=== PATIENT | female | born 1985 | race Caucasian/White ===

== ENCOUNTER 2020-02-18 11:15 | Emergency (ER) | payer OTHER, SELFPAY ==
--- NOTE | ~2020-02-18 | XR_ITS ---
EXAMINATION: XR chest 2V DATE: 02/18/2020 11:47 INDICATION: Cough. Shortness of breath. TECHNIQUE: Frontal and lateral views of the chest were obtained. COMPARISON: None. FINDINGS: The chest demonstrates clear lungs without pneumonia, pleural effusion, or pneumothorax. Th e heart size is normal. IMPRESSION: 1. No acute cardiopulmonary disease. Reviewed, dictated and finalized at location A.
[2020-02-18 11:20] VITALS: BP 128/78; PULSE 71; RESP 22; TEMP 36.8; O2SAT 99
--- NOTE | 2020-02-18 11:35 | ED.URI ---
HPI - URI/Sore Throat General Chief Complaint: Upper Respiratory Infection Stated Complaint: ear throat and sinus asthma Time Seen by Provider: 02/18/20 11:29 Source: patient and RN notes reviewed Mode of arrival: ambulatory Limitations: no limitations History of Present Illness HPI Narrative: Patient presents today with a one-week history of dry cough, postnasal drip, sore throat, nasal congestion, increased shortness of breath and wheezing. Patient does have history of asthma and states she has similar symptoms every year when the weather changes. Denies fever or rhinorrhea. She has been using Tylenol Sinus and albuterol with mild relief. Patient continues to smoke 1 pack/day. MD elicited complaint: cough Related Data Home Medications Medication Instructions Recorded Confirmed albuterol sulfate 1.25 mg INHALATION Q4H PRN 08/20/19 02/18/20 albuterol sulfate 2 puff INHALATION QID PRN 08/20/19 02/18/20 Allergies Allergy/AdvReac Type Severity Reaction Status Date / Time amoxicillin Allergy Unknown Rash Verified 02/18/20 11:33 cephalexin Allergy Unknown Rash Verified 02/18/20 11:33 latex Allergy Unknown Rash Verified 02/18/20 11:33 Sulfa (Sulfonamide Allergy Unknown Rash Verified 02/18/20 11:33 Antibiotics) TAPE AdvReac Intermediate Rash Uncoded 07/19/19 15:42 Review of Systems Review of Systems: Narrative: CONSTITUTIONAL: Denies body aches, fever, chills, or sweats. EYES: Denies visual changes, redness, or discharge. ENT: Denies rhinorrhea, or otalgia.+ Congestion, postnasal drip, sore throat CARDIOVASCULAR: Denies chest pain, palpitations, or edema. RESPIRATORY: + Cough, shortness of breath, wheezing GASTROINTESTINAL: Denies abdominal pain, nausea, vomiting, or diarrhea. GENITOURINARY: Denies dysuria or hematuria. SKIN: Denies rash, itching, or wounds. MUSCULOSKELETAL: Denies back pain, joint pain, or myalgia. NEUROLOGIC: Denies headache, numbness, tingling, or weakness. PSYCH: Denies depression or anxiety. [facility] Past Medical History Medical History Asthma Cigarette smoker Social History Social History (Updated 08/20/19 @ 09:02 by Roxana Eng, [facility], ) Smoking packs per day: 1 Smoking cigarettes per day: 20.0 Years smoked: 16 Smoking pack-years: 16.00 Comments At time of signature, I have reviewed and agree with nursing past medical, surgical, social and family history unless otherwise noted. Please see nursing chart for further information. There is no relevant family history pertinent to the presenting complaint Exam Narrative: Exam Narrative: GENERAL: Well-appearing, well-nourished, and in no acute distress. HEAD: Normocephalic, atraumatic. EYES: EOMI. No redness or drainage. Conjunctivae normal. ENT: Mucous membranes pink and moist. Nares mildly congested. No rhinorrhea. TMs normal bilaterally. Throat normal. Uvula midline. NECK: Normal AROM. Supple. No lymphadenopathy. CHEST: No respiratory distress. Diminished in the right base, otherwise clear, but tight. HEART: Regular rate and rhythm. No murmur appreciated. Normal peripheral pulses. EXTREMITIES: Normal range of motion. No edema. SKIN: Warm, dry, no rash. Capillary refill normal. Normal skin turgor. NEURO: No focal deficits. Alert and oriented x3. Gait steady. PSYCH: Normal affect. No signs of depression or anxiety. Course Vital Signs Vital signs: Vital Signs Temperature 98.2 F 02/18/20 11:20 Pulse Rate 71 02/18/20 11:20 Respiratory Rate 22 H 02/18/20 11:20 Blood Pressure 128/78 02/18/20 11:20 Pulse Oximetry 99 02/18/20 11:20 Temperature 98.2 F 02/18/20 11:20 Pulse Rate 71 02/18/20 11:20 Respiratory Rate 22 H 02/18/20 11:20 Blood Pressure 128/78 02/18/20 11:20 Pulse Oximetry 99 02/18/20 11:20 Reviewed. Pt has been instructed to follow up with her PCP regarding her elevated blood pressure today. MDM - URI/Sore Throat Differential Diagnosis Differential diagnosis: Lik
== END 2020-02-18 12:20 | disposition home or self-care (01) ==
PROVIDERS: Emergency Provider Nurse Practitioner
DX: J06.9 Acute upper respiratory infection, unspecified (principal); J45.901 Unspecified asthma with (acute) exacerbation; F17.210 Nicotine dependence, cigarettes, uncomplicated
CPT/HCPCS: 71046; 99213; G0463

== ENCOUNTER 2020-02-23 11:19 | Emergency (ER) | payer OTHER, SELFPAY ==
--- NOTE | ~2020-02-23 | XR_ITS ---
XR chest 2V DATE: 02/23/2020 12:10 INDICATION: Shortness of breath TECHNIQUE: 2 views COMPARISON: 02/18/2020 2 view chest FINDINGS: Normal heart size. No hilar or mediastinal enlargement. The lungs are normally inflated and clear of infiltrate or consolidation. No pleural effusion or pulmonary vascular congestion or pneumo thorax. Included skeletal structures are unremarkable. IMPRESSION: Negative chest Reviewed, dictated and finalized at location A. IMPRESSION: Negative chest
[2020-02-23 11:34] VITALS: BP 110/82; PULSE 80; RESP 20; TEMP 36.8; O2SAT 98
[2020-02-23] MEDS: methylPREDNISolone ACETATE 40 MG/ML VIAL 80 MG IM (11:43)
[2020-02-23 11:50] VITALS: PULSE 78; RESP 16
[2020-02-23] MEDS: IPRATROPIUM 0.5 MG/ALBUTEROL SULFATE 2.5 MG AMPUL.NEB 3 ML INHALATION (11:56)
[2020-02-23 12:05] VITALS: PULSE 78; RESP 18
--- NOTE | 2020-02-23 12:32 | ED.SOB ---
HPI - SOB/Dyspnea General Chief Complaint: Shortness of Breath/Dyspnea Stated Complaint: Asthma/difficulty breathing Source: patient Mode of arrival: ambulatory Limitations: no limitations History of Present Illness HPI Narrative: This is a 34-year-old female presents with increasing shortness of breath, has a history of asthma currently on albuterol and recently finished a tapering dose of Medrol Dosepak. Has been pretty well controlled with her albuterol, but with the recent weather change has increased occurrences and exacerbations of her asthma. Approximately 1 week ago was seen at [facility] and was treated for her asthma and viral respiratory infection with a tapering dose of steroids. Currently there is no fever chills cough is nonproductive, with no nausea vomiting no abdominal pain no chest pain. MD elicited complaint: shortness of breath and cough Pertinent past history: asthma Onset (ago): week(s) Context: allergen exposure Timing: intermittent Severity: moderate Exacerbating factors: coughing, allergies, humidity and strong odors Relieving factors: nothing Known history of: asthma Associated symptoms: cough and wheezing Related Data Home Medications Medication Instructions Recorded Confirmed albuterol sulfate 1.25 mg INHALATION Q4H PRN 08/20/19 02/23/20 albuterol sulfate 2 puff INHALATION QID PRN 08/20/19 02/23/20 Allergies Allergy/AdvReac Type Severity Reaction Status Date / Time amoxicillin Allergy Unknown Rash Verified 02/18/20 11:33 cephalexin Allergy Unknown Rash Verified 02/18/20 11:33 latex Allergy Unknown Rash Verified 02/18/20 11:33 Sulfa (Sulfonamide Allergy Unknown Rash Verified 02/18/20 11:33 Antibiotics) TAPE AdvReac Intermediate Rash Uncoded 07/19/19 15:42 Review of Systems Review of Systems: All systems reviewed & are unremarkable except as noted in HPI and below PMFSH Past Medical History Medical History Asthma Cigarette smoker Social History Social History Smoking packs per day: 1 Smoking cigarettes per day: 20.0 Years smoked: 16 Smoking pack-years: 16.00 Exam Const: General: no acute distress and alert Orientation/consciousness: patient oriented x3 HENMT: Head: normal to inspection Eyes: Conjunctivae: conjunctivae normal Pupils: Equal, round and reactive pupils present Neck: Neck: normal visual inspection and no lymphadenopathy Chest: Chest palpation & inspection: normal inspection of the chest Resp: Auscultation: wheezes and diminished lung sounds Cardio: Rate: regular rate Rhythm: regular rhythm GI: GI Palp: Yes Soft to palpation Auscultation: normal bowel sounds : General: Yes no CVA tenderness Back/Spine/Pelvis: Back: no CVA tenderness Skin: General skin exam: normal color Rashes: no rashes Neuro: General: patient oriented x3, moves all extremities and no meningeal signs Extrem: General: normal to inspection Psych: Mental Status: mental status grossly normal Course Vital Signs Vital signs: Vital Signs Temperature 36.8 C 02/23/20 11:34 Pulse Rate 80 02/23/20 11:34 Respiratory Rate 20 02/23/20 11:34 Blood Pressure 110/82 02/23/20 11:34 Pulse Oximetry 98 02/23/20 11:34 Temperature 36.8 C 02/23/20 11:34 Pulse Rate 78 02/23/20 12:05 Respiratory Rate 18 02/23/20 12:05 Blood Pressure 110/82 02/23/20 11:34 Pulse Oximetry 98 02/23/20 11:34 Critical Care Time Critical Care Time Critical Care Time: No Discharge Plan Discharge Prescriptions: No Action prednisone 50 mg tablet 50 mg PO DAILY 5 Days Qty: 5 RF: 0 albuterol sulfate 90 mcg/actuation Hfa Aerosol Inhaler 2 puff INHALATION QID PRN (Reason: Shortness Of Breath Or Wheezing) RF: 0 albuterol sulfate 1.25 mg/3 mL Solution For Nebulization 1.25 mg INHALATION Q4H PRN (Reason: Shortness Of Breath Or Wheezing) RF: 0 Follow-up/Referrals: UNKNOWN
[2020-02-23 12:40] VITALS: PULSE 75; RESP 18; O2SAT 95
== END 2020-02-23 12:50 | disposition home or self-care (01) ==
PROVIDERS: Emergency Provider Emergency Medicine
DX: J45.909 Unspecified asthma, uncomplicated (principal); J06.9 Acute upper respiratory infection, unspecified; F17.200 Nicotine dependence, unspecified, uncomplicated
CPT/HCPCS: 71046; 94640; 96372; 99282; 99283; J1030

== ENCOUNTER 2020-06-01 02:34 | Emergency (ER) | payer OTHER, SELFPAY ==
--- NOTE | ~2020-06-01 | XR_ITS ---
EXAMINATION: XR chest 1V portable EXAM DATE: 06/01/2020 03:08 INDICATION: TECHNIQUE: Portable AP frontal chest x-ray was obtained. Comparison is made to prior examination from 02/23/2020. FINDINGS: The lungs are clear. There are no pleural effusions. The cardiomediastinal silhouette is within normal limits. There is no pneumothorax suspected. The bones and soft tissues are unremarkab le. There is no significant interval change. IMPRESSION: Unremarkable chest x-ray exam. Reviewed, dictated and finalized at location A.
[2020-06-01 02:34] VITALS: BP 133/74; PULSE 103; RESP 24; TEMP 36.1; O2SAT 96
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
[2020-06-01] MEDS: IPRATROPIUM 0.5 MG/ALBUTEROL SULFATE 2.5 MG AMPUL.NEB 3 ML INHALATION (02:58)
[2020-06-01] MEDS: methylPREDNISolone SOD SUCC 125 MG VIAL (02:59)
[2020-06-01 03:00] VITALS: PULSE 103; RESP 24
--- NOTE | 2020-06-01 03:04 | PC.NURSE ---
pt able to talk clearly while talking on the phone
--- NOTE | 2020-06-01 03:06 | PC.NURSE ---
pt argumentative when asked if feeling better after breathing treatment. pt denies being able to talk in clear sentence while on the phone. erp and nurse heard pt talking clearly on the phone.
[2020-06-01 03:13] LABS: Basophils Absolute Auto 0.04 K/mm3 (0.00-0.10); Basophils Percent Auto 0.4 % (0.0-1.0); Eosinophils Absolute Auto 0.31 K/mm3 (0.02-0.50); Eosinophils Percent Auto 3.5 % (1.0-6.0); Hematocrit 43.1 % (35.0-49.0); Hemoglobin 14.6 g/dL (12.0-15.0); Immature Granulocyte Absolute 0.03 K/mm3 (0.00-0.00); Immature Granulocyte Percent A 0.3 % (0.0-0.0); Lymphocytes Absolute Auto 3.85 K/mm3 (1.10-4.50); Mean Corpuscular HGB Conc 33.9 g/dL (32.0-36.0); Mean Corpuscular Hemoglobin 30.4 pg (27.0-31.0); Mean Corpuscular Volume 89.6 fL (78.0-102.0); Mean Platelet Volume 9.9 fl (9.2-11.8); Monocytes Absolute Auto 0.89 K/mm3 (0.10-0.90); Monocytes Percent Auto 9.9 % (2.0-11.0); Neutrophils Absolute Auto 3.8 K/mm3 (1.7-7.2); Neutrophils Percent Auto 42.9 % (50.0-70.0); Platelet Count Result 329 K/mm3 (150-420); Red Blood Count 4.81 M/mm3 (4.20-5.40)
[2020-06-01 03:14] VITALS: PULSE 105; RESP 22
[2020-06-01 03:27] LABS: Alanine Aminotransferase 29 U/L (14-59); Albumin Level 3.8 g/dL (3.4-5.0); Alkaline Phosphatase 110 U/L (46-116); Anion Gap 16 mmol/L (8-16); Aspartate Amino Transferase 18 U/L (15-37); Bilirubin,Total 0.2 mg/dL (0.00-1.00); Blood Urea Nitrogen 11 mg/dL (7-18); Calcium 9.1 mg/dL (8.5-10.1); Carbon Dioxide 20 mmol/L (21-32); Chloride 109 mmol/L (98-108); Estimated CRCL calculation 60 ml/min; Estimated Glomerular Filt Rate 49; Ethanol 183 mg/dL (0-6); Glucose 116 mg/dL (70-99); Osmolality Calculated 300 mOsm/kg (285-295); Potassium 3.4 mmol/L (3.5-5.1); Sodium 145 mmol/L (136-145); Total Protein 7.2 g/dL (6.4-8.2)
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
[2020-06-01 03:50] VITALS: BP 119/66; PULSE 103; RESP 20; TEMP 37.1; O2SAT 96
[2020-06-01 04:05] VITALS: BP 121/65; PULSE 102; RESP 20; O2SAT 96
--- NOTE | 2020-06-01 04:06 | PC.NURSE ---
pt departed ambulatory from facility. no respiratory distress noted.
== END 2020-06-01 04:13 | disposition home or self-care (01) ==
PROVIDERS: Emergency Provider Emergency Medicine; PCP Family Medicine
DX: J45.901 Unspecified asthma with (acute) exacerbation (principal); F10.129 Alcohol abuse with intoxication, unspecified; F17.200 Nicotine dependence, unspecified, uncomplicated
CPT/HCPCS: 36415; 71045; 80053; 80307; 85025; 94640; 96365; 96375; 99283; 99284; J2930; J7030

== ENCOUNTER 2020-07-11 16:11 | Emergency (ER) | payer OTHER, SELFPAY ==
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
[2020-07-11 16:37] VITALS: BP 131/83; PULSE 76; RESP 20; TEMP 36.6; O2SAT 97
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
== END 2020-07-11 17:12 | disposition home or self-care (01) ==
PROVIDERS: Emergency Provider Emergency Medicine; PCP Family Medicine
DX: M25.512 Pain in left shoulder (principal); V89.2XXA Person injured in unspecified motor-vehicle accident, traffic, initial encounter
CPT/HCPCS: 73000; 99282; 99283

== ENCOUNTER 2020-08-02 08:04 | Emergency (ER) | payer OTHER, SELFPAY ==
--- NOTE | ~2020-08-02 | CT_ITS ---
EXAMINATION: CT abdomen pelvis w con DATE: 08/02/2020 10:09 INDICATION: Mid upper abdominal pain, nausea and vomiting. TECHNIQUE: Computed tomography (CT) of the abdomen and pelvis was performed without intravenous contr ast. Automated exposure control and iterative reconstruction technique were employed. The dose-length product was 848.51 mGy-cm. COMPARISON: None FINDINGS: Lung bases are clear. Heart size is normal. No pericardial or pleural effusion. Liver, gallbladder, s pleen, pancreas, bilateral adrenal glands and kidneys are normal. Bowels including the appendix are n ormal. Bladder is normal. There is asymmetric thickening of the posterior wall of the uterus relative to the anterior wall with anterior bowing of the endometrial complex and reported negative test suggesting the presence of an otherwise occult uterine fibroid. Metallic likely tubal ligation clip situated between the uterus and the right ovary. Left adnexa is unremarkable with no left-sided tubal ligation clip. No free intraperitoneal gas or fluid. No pathologically enlarged abdominal or pe lvic lymphadenopathy. Bones are unremarkable. IMPRESSION: 1. No acute intra-abdominal/pelvic process. 2. Thickening of the posterior uterine wall with mass effect on the endometrial complex suggesting po ssible uterine fibroid. 3. Unilateral right-sided tubal ligation clip in expected position. No left-sided tubal ligation clip lower left ovary is visualized. Reviewed, dictated and finalized at location B. IMPRESSION: 1. No acute intra-abdominal/pelvic process. 2. Thickening of the posterior uterine wall with mass effect on the endometrial complex suggesting possible uterine fibroid. 3. Unilateral right-sided tubal ligation clip in expected position. No left-elvis ed tubal ligation clip lower left ovary is visualized.
--- NOTE | ~2020-08-02 | XR_ITS ---
EXAMINATION: XR chest 2V DATE: 08/02/2020 09:55 INDICATION: Cough and congestion TECHNIQUE: PA and lateral views of the chest were obtained. COMPARISON: Chest radiograph dated 06/01/2020 FINDINGS: The lungs remain clear with no focal airspace opacities, pulmonary edema, pleural effusion or pneumot horax. The cardiomediastinal silhouette is normal. There is some excreted contrast in the renal colle cting systems on the lateral projection related to the immediately prior contrast enhanced CT of the abdomen and pelvis. Visualized bones and soft tissues are unremarkable. IMPRESSION: 1. Normal chest radiograph. Reviewed, dictated and finalized at location B. IMPRESSION: 1. Normal chest radiograph.
[2020-08-02 08:25] VITALS: BP 139/79; PULSE 76; RESP 20; TEMP 36.8; O2SAT 96
--- NOTE | 2020-08-02 08:47 | ECG_ITS ---
Measurements Intervals Maple Rate: 65 P: 65 OK: 140 QRS: 80 QRSD: 86 T: 54 QT: 370 QTc: 387 Interpretive Statements SINUS RHYTHM WITH SINUS ARRHYTHMIA LOW QRS VOLTAGE IN PRECORDIAL LEADS DELAYED PRECORDIAL R/S TRANSITION BASELINE ARTIFACT- I, III, AVR, AVL, AVF BORDERLINE ECG Electronically Signed On 08-02-2020 9:17:21 CDT by Mukesh Marie D.O.
[2020-08-02] MEDS: ONDANSETRON INJ 4 MG/2 ML VIAL IV PUSH (09:11)
[2020-08-02] MEDS: SODIUM CHLORIDE 0.9% IV 1,000 ML 999 ML IV CONT (09:13)
[2020-08-02 09:14] LABS: Basophils Absolute Auto 0.04 K/mm3 (0.00-0.10); Basophils Percent Auto 0.3 % (0.0-1.0); Eosinophils Absolute Auto 0.32 K/mm3 (0.02-0.50); Eosinophils Percent Auto 2.4 % (1.0-6.0); Hematocrit 42.9 % (35.0-49.0); Hemoglobin 14.4 g/dL (12.0-15.0); Immature Granulocyte Absolute 0.05 K/mm3 (0.00-0.00); Immature Granulocyte Percent A 0.4 % (0.0-0.0); Lymphocytes Absolute Auto 1.29 K/mm3 (1.10-4.50); Lymphocytes Percent Auto 9.8 % (18.0-42.0); Mean Corpuscular HGB Conc 33.6 g/dL (32.0-36.0); Mean Corpuscular Hemoglobin 30.1 pg (27.0-31.0); Mean Corpuscular Volume 89.7 fL (78.0-102.0); Mean Platelet Volume 9.6 fl (9.2-11.8); Monocytes Absolute Auto 1.18 K/mm3 (0.10-0.90); Monocytes Percent Auto 8.9 % (2.0-11.0); Neutrophils Absolute Auto 10.4 K/mm3 (1.7-7.2); Neutrophils Percent Auto 78.2 % (50.0-70.0); Platelet Count Result 334 K/mm3 (150-420); Red Blood Count 4.78 M/mm3 (4.20-5.40); Red Cell Distribution Width 12.3 % (11.6-14.4); White Blood Count 13.2 K/mm3 (4.8-10.8)
[2020-08-02] MEDS: KETOROLAC 30 MG/ML VIAL (*BKC) IV PUSH (09:20)
[2020-08-02 09:28] LABS: Add Urine Microscopic? YES; Appearance Urine Sl Cloudy (Clear); Bilirubin Urine Negative (Negative); Blood Urine Negative (Negative); Color Urine Amber (Yellow); Glucose Urine UA Negative (Negative); Ketones Urine Negative (Negative); Leukocyte Esterase Ur Negative (Negative); Nitrate Urine Negative (Negative); Protein Urine Negative (Negative); Specific Grav Ur >= 1.030 (1.010-1.020); Urobilinogen Urine 0.2 mg/dL (0.2-1.0)
[2020-08-02 09:30] LABS: Pregnancy On Board Control Positive; Urine Pregnancy Test Negative
[2020-08-02 09:31] LABS: Alanine Aminotransferase 43 U/L (14-59); Albumin Level 3.5 g/dL (3.4-5.0); Alkaline Phosphatase 108 U/L (46-116); Anion Gap 9 mmol/L (8-16); Aspartate Amino Transferase 27 U/L (15-37); Bilirubin,Total 0.6 mg/dL (0.00-1.00); Blood Urea Nitrogen 11 mg/dL (7-18); Calcium 8.5 mg/dL (8.5-10.1); Carbon Dioxide 26 mmol/L (21-32); Chloride 106 mmol/L (98-108); Estimated CRCL calculation 73 ml/min; Estimated Glomerular Filt Rate > 60; Glucose 98 mg/dL (70-99); Influenza Control Valid (Valid); Lipase 64 U/L (73-393); Osmolality Calculated 291 mOsm/kg (285-295); Potassium 4.1 mmol/L (3.5-5.1); Sodium 141 mmol/L (136-145); Total Protein 6.7 g/dL (6.4-8.2); Troponin I < 0.02 ng/mL (0.00-0.056)
[2020-08-02 09:33] LABS: Lactic Acid Reflex 0.9 mmol/L (0.4-2.0)
[2020-08-02 09:34] LABS: Bacteria Urine Trace /hpf; Mucus Urine Moderate /lpf; RBC Urine None seen /hpf (0-2); Squamous Epithelial Cell Urine Few /hpf (Few); WBC Urine None seen /hpf (0-3)
--- NOTE | 2020-08-02 10:26 | ED.ABDPAIN ---
HPI - Abdominal Pain General Chief Complaint: Abdominal Pain Stated Complaint: COUGH VOMITTING SORE THROAT Source: patient Mode of arrival: ambulatory Limitations: no limitations History of Present Illness HPI narrative: This is a 35-year-old female presents with lower abdominal pain off and on for the last couple of days with some nausea with no diarrhea or constipation no radiation of her pain no flank discomfort no dysuria no having menstrual periods. Patient has some cough nonproductive with chills no fevers sinus congestion currently no drainage with no headache no blurry vision no shortness of breath. MD elicited complaint: abdominal pain Pertinent past history: none Onset (ago): day(s) Pain Consistency: intermittent Location: periumbilical and suprapubic Severity: moderate Pain scale (0-10): 5 Quality: aching Radiation: none Related Data Home Medications Medication Instructions Recorded Confirmed albuterol sulfate 1.25 mg INHALATION Q4H PRN 08/20/19 08/02/20 beclomethasone dipropionate [Qvar 1 inh INHALATION DAILY 07/11/20 08/02/20 RediHaler] Allergies Allergy/AdvReac Type Severity Reaction Status Date / Time amoxicillin Allergy Unknown Hives Verified 07/11/20 16:47 cephalexin Allergy Unknown Diarrhea Verified 07/11/20 16:47 latex Allergy Unknown Rash Verified 07/11/20 16:47 Sulfa (Sulfonamide Allergy Unknown Rash Verified 07/11/20 16:47 Antibiotics) TAPE AdvReac Intermediate Itching Uncoded 07/11/20 16:47 Review of Systems Review of Systems: All systems reviewed & are unremarkable except as noted in HPI and below PMFSH Past Medical History Medical History (Updated 08/02/20 @ 10:30 by Pedro Luis Yan MD) Asthma Cigarette smoker Nicotine addiction Overweight (BMI 25.0-29.9) Seasonal allergies Surgical History Surgical History H/O tubal ligation Social History Social History Smoking packs per day: 1 Smoking cigarettes per day: 20.0 Years smoked: 16 Smoking pack-years: 16.00 Smoking status: Current every day smoker Alcohol intake: never Substance use: never Substance use type: does not use Gender identity (if verbalized by the patient): Female Exam Const: General: no acute distress and alert Orientation/consciousness: patient oriented x3 Limitations: altered mental status HENMT: Head: normal to inspection Eyes: Conjunctivae: conjunctivae normal Pupils: Equal, round and reactive pupils present EOM: EOMs intact bilaterally Direct Ophthalmoscopy: no photophobia Neck: Neck: normal visual inspection, no lymphadenopathy and no meningeal signs Chest: Chest palpation & inspection: normal inspection of the chest and abnormal inspection of the chest Resp: Effort & Inspection: normal respiratory effort Auscultation: clear to auscultation bilaterally Cardio: Rate: regular rate Rhythm: regular rhythm GI: GI Palp: Yes Soft to palpation : General: Yes no CVA tenderness Urinary Catheter: Urinary Catheter: patent and draining Skin: General skin exam: normal color Rashes: no rashes Neuro: General: patient oriented x3, moves all extremities, no meningeal signs and no focal motor deficits Extrem: General: normal to inspection and no pedal edema Psych: Appearance: grossly normal Mental Status: mental status grossly normal Affect: normal affect Course Course Emergency Course: reassessment of patient's pain level has improved slightly, with some improvement of her nausea, discussed her lab findings and CT findings and recommended she follow-up with primary care physician. Vital Signs Vital signs: Vital Signs Temperature 36.8 C 08/02/20 08:25 Pulse Rate 76 08/02/20 08:25 Respiratory Rate 20 08/02/20 08:25 Blood Pressure 139/79 08/02/20 08:25 Pulse Oximetry 96 08/02/20 08:25 Temperature 36.8 C 08/02/20 08:25 Pulse Rate 76
[2020-08-02 10:30] VITALS: BP 122/74; PULSE 74; RESP 20; TEMP 36.9; O2SAT 97
[2020-08-03 14:10] LABS: SARS-CoV-2 RNA PCR Negative
== END 2020-08-02 10:37 | disposition home or self-care (01) ==
PROVIDERS: Emergency Provider Emergency Medicine; PCP Family Medicine
DX: R10.9 Unspecified abdominal pain (principal); Z20.828 Contact with and (suspected) exposure to other viral communicable diseases
CPT/HCPCS: 36415; 71046; 74177; 80053; 81001; 81025; 83605; 83690; 84484; 85025; 87635; 87804; 93005; 96361; 96374; 96375; 99283; 99284; C9803; J1885; J2405; J7030; Q9965; U0003

== ENCOUNTER 2021-10-21 11:00 | Outpatient (CLI) | payer OTHER, SELFPAY ==
[2021-10-21 11:19] VITALS: BP 118/70; PULSE 100; RESP 14; TEMP 36.6; O2SAT 98
[2021-10-21 11:20] VITALS: BMI 33.5
[2021-10-21] MEDS: FAMOTIDINE 20 MG TABLET PO (11:20)
[2021-10-21] MEDS: ACETAMINOPHEN 325 MG TABLET 650 MG PO (11:20)
[2021-10-21] MEDS: diphenhydrAMINE HCl CAP 25 MG CAPSULE PO (11:20)
--- NOTE | 2021-10-21 11:22 | PC.NURSE ---
Patient here for IV Bamianivimab/Etesevimab infusion r/t positive for covid and meets high risk criteria. Education on medication given. Concerns answered. Consent signed. Po premeds and Iv Bamianivimab/Etesevimab administered SEE DEC.
[2021-10-21 12:50] VITALS: BP 114/69; PULSE 88; RESP 14; TEMP 36.4; O2SAT 99
--- NOTE | 2021-10-21 12:52 | PC.NURSE ---
Patient tolerated infusion well. No s/sx of infusion reaction noted or reported. Safe exit of hospital.KJ
== END 2021-10-21 11:01 | disposition home or self-care (01) ==
PROVIDERS: PCP Family Medicine; Visit Provider Nurse Practitioner Family
DX: U07.1 COVID-19 (principal)
CPT/HCPCS: A9270; M0245; Q0245

== ENCOUNTER 2022-05-08 15:21 | Outpatient (NON) | payer OTHER, SELFPAY | END 2022-05-08 15:22 | disposition home or self-care (01) | LOC: CHSLAB 15:23 | PROVIDERS: Visit Provider Nurse Practitioner Family | DX: L02.412 Cutaneous abscess of left axilla (principal) | CPT/HCPCS: 87070; 87147; 87186; 87205 ==

== ENCOUNTER 2023-08-08 11:28 | Outpatient (CLI) | payer OTHER, SELFPAY ==
[2023-08-08 12:17] LABS: Strep Group A RT-PCR NOT DETECTED (Negative)
[2023-08-08 12:27] LABS: Influenza A QL RT-PCR Negative (Negative); Influenza B QL RT-PCR Negative (Negative); SARS-CoV-2 RNA PCR Negative (Negative)
[2023-08-08 12:44] LABS: RSV RNA, RT-PCR Negative (Negative)
== END 2023-08-08 11:29 | disposition home or self-care (01) ==
LOC: CHSLAB 11:30
PROVIDERS: PCP Nurse Practitioner Family; Visit Provider Nurse Practitioner Family
DX: R05.9 Cough, unspecified (principal)
CPT/HCPCS: 87637; 87651

== ENCOUNTER 2024-02-23 16:00 | Emergency (ER) | payer OTHER, SELFPAY ==
--- NOTE | ~2024-02-23 | XR_ITS ---
EXAM: XR knee LT 3V, XR tibia fibula LT 2V DATE: 02/23/2024 16:24 HISTORY: Fall x1 day, Medial Lt. knee pain travels down Lt. leg . COMPARISON: None available. FINDINGS: Normal mineralization. No fracture or dislocation. No lytic or blastic lesion. Mild medial joint space narrowing. No erosion or periosteal change. Soft tissues within normal limits. IMPRESSION: No acute osseous finding in the left knee or left tibia/fibula. Reviewed, dictated and finalized at location K. IMPRESSION: No acute osseous finding in the left knee or left tibia/fibula.
[2024-02-23 16:00] VITALS: BP 112/77; PULSE 89; RESP 18; TEMP 36.8; O2SAT 98
[2024-02-23] MEDS: KETOROLAC (*BKC) 60 MG/2 ML VIAL IM (16:22)
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
[2024-02-23] MEDS: NEOMYCIN/POLYMYXIN/BACITRACIN OINTMENT PACKET 1 PACKET TOPICAL (16:44)
[2024-02-23 16:55] VITALS: BP 126/74; PULSE 83; RESP 16; O2SAT 95
== END 2024-02-23 17:00 | disposition home or self-care (01) ==
PROVIDERS: Emergency Provider Emergency Medicine; PCP Nurse Practitioner Family
DX: S83.92XA Sprain of unspecified site of left knee, initial encounter (principal); S80.212A Abrasion, left knee, initial encounter; V09.9XXA Pedestrian injured in unspecified transport accident, initial encounter; F17.210 Nicotine dependence, cigarettes, uncomplicated
CPT/HCPCS: 73562; 73590; 96372; 99284; J1885

== ENCOUNTER 2024-07-21 10:10 | Outpatient (CLI) | payer OTHER, SELFPAY ==
[2024-07-23 10:01] LABS: Trichomonas Vag PCR NOT DETECTED (NOT DETECTE)
[2024-07-23 10:24] LABS: Chlamydia trachomatis NOT DETECTED (NOT DETECTE); Neisseria gonorrhoeae PCR NOT DETECTED (NOT DETECTE)
== END 2024-07-21 10:11 | disposition home or self-care (01) ==
LOC: CHSLAB 10:12
PROVIDERS: PCP Nurse Practitioner Family; Visit Provider Nurse Practitioner Family
DX: Z11.3 Encounter for screening for infections with a predominantly sexual mode of transmission (principal); Z20.2 Contact with and (suspected) exposure to infections with a predominantly sexual mode of transmission
CPT/HCPCS: 87491; 87591; 87661

== ENCOUNTER 2024-10-25 10:14 | Outpatient (CLI) | payer OTHER, SELFPAY ==
--- NOTE | 2024-10-25 10:27 | ECG_ITS ---
Test Date: 2024-10-25 10:45:37 Measurements Intervals [place] Rate: 79 P: 52 NV: 141 QRS: 62 QRSD: 92 T: 35 QT: 340 QTc: 392 Interpretive Statements SINUS RHYTHM LOW QRS VOLTAGE IN PRECORDIAL LEADS [QRS DEFLECTION < 1.0 mV IN CHEST LEADS] No previous ECG available for comparison Electronically Signed On 10-25-2024 10:50:51 [employer]BBER TE[employer] by Gerry Vicente M.D.
[2024-10-25 11:31] LABS: Hematocrit 44.2 % (37.0-47.0); Hemoglobin 14.5 g/dL (12.0-15.0); Mean Corpuscular HGB Conc 32.8 g/dl (32-36); Mean Corpuscular Hemoglobin 30.3 pg (26-34); Mean Corpuscular Volume 92.3 fl (80-100); Mean Platelet Volume 9.7 fl (7.4-10.4); Platelet Count Result 417 k/mm3 (150-375); Red Blood Count 4.79 M/mm3 (4.2-5.4); Red Cell Distribution Width 13.2 % (11.5-14.5); White Blood Count 9.6 K/mm3 (4.5-10.0)
== END 2024-10-25 10:15 | disposition home or self-care (01) ==
PROVIDERS: PCP Nurse Practitioner Family; Referring Provider Obstetrics & Gynecology; Visit Provider Anesthesiology
DX: N92.1 Excessive and frequent menstruation with irregular cycle (principal); F17.210 Nicotine dependence, cigarettes, uncomplicated
CPT/HCPCS: 36415; 85027; 86850; 86900; 86901; 93005

== ENCOUNTER 2024-10-30 01:12 | Day surgery (SDC) | payer OTHER, SELFPAY ==
[2024-10-22 13:32] VITALS: BMI 27.1
--- NOTE | 2024-10-22 13:40 | PC.NURSE ---
Report to the Outpatient Waiting Room, entrance under the green pavilion located off [facility], at time _0600_ on date _[id number]_. Planned Procedure Time: _0800_.? Time changes happen often and if your time is changed the preop area will call you the afternoon before. - You and your visitor will be asked to self-screen and do not enter if you have any COVID symptoms. Please call surgeon if you need to reschedule. - A mask is optional within the hospital at this time. Patients may have clear liquids (water, carbonated beverages, clear teas, apple juice) until 3 hours prior to surgery with a maximum of 20 ounces. - No food from midnight until time of surgery and no smoking. This includes no chewing gum, candy or mints. Take only the following medications with a SIP of water on the morning of surgery: ___Symbicort and if needed Albuterol.____ DO NOT STOP ANY OF YOUR OTHER PRESCRIPTION MEDICATIONS PRIOR TO SURGERY EXCEPT THE FOLLOWING Medications to discontinue per physician ___Vitamins and supplements___ Date to take last cbbk___[id number]____ Took last dose of Semaglutide 10-14-2024; holding till after surgery. Please no make-up, nail hungarian, hairspray, perfume, deodorant, or body powder the day of surgery.? No jewelry (including any body piercings) or valuables the day of surgery, leave them at home.? Please take a shower or bath the night before, or the morning of, surgery with an antibacterial soap.? Wear comfortable, loose fitting clothing.? - Jewelry must be removed prior to entering the operating room.? Rings and piercings that are not removed may be cut off. - The hospital will not accept responsibility for valuables.? - Please leave all valuables, including medications, at home the day of surgery. If you are going home after surgery, a licensed lokie driver must drive you home.? - NO public transportation without another adult if you receive anesthesia. - We recommend that an adult stay with you for 24 hours following discharge. - We also recommend that you do not drive, make important decision, drink alcoholic beverages, or take any drugs that were not prescribed by your health care provider for at least 24 hours after your discharge time. Follow any additional instructions given to you from your surgeon. Telephone instructions given to __Tasha__and asked if any additional questions and then verbalized understanding. Patient advised to call surgeon office or pre surgery nurse liaison [phone] if any additional questions.
--- NOTE | 2024-10-27 15:48 | PM.IMHP ---
H&P: HPI History of Present Illness Date/Time: 10/27/24 15:48 39-year-old 2 para 2000 female presents with complaints of menstrual cycles lasting 5-7 days with 3-4 days heavy clotting cramping. No significant issues throughout the month otherwise. Does have some postcoital bleeding and occasional cramping though this is intermittent and not regular. She has had an ultrasound which shows an enlarged uterus though no fibroids and no ovarian issues. She has had 2 prior vaginal deliveries and a tubal ligation as well. Chief Complaint: Menometrorrhagia Review of Systems Review of Systems: All systems reviewed & are unremarkable except as noted in HPI and below PMFSH Past Medical History Medical History COVID-19 Exposure to COVID-19 virus Overweight (BMI 25.0-29.9) Seasonal allergies Encounter for weight loss counseling Nicotine addiction Cigarette smoker Asthma Surgical History Surgical History H/O tubal ligation Social History Social History Smoking packs per day: 1 Smoking cigarettes per day: 20.0 Years smoked: 20 Smoking pack-years: 20.00 Smoking status: Former smoker Tobacco type: cigarettes Second hand tobacco smoke exposure: Yes Alcohol intake: current Drinks per week: 2 Alcohol use details: social Substance use: never Substance use type: does not use Do You Feel Safe in your Home?: Yes Lack of Transportation: No Lack of Food: Never True Current Housing: I Have Housing Concerned About Future Housing: No Difficulty Paying Gas/Electric Bills: No Difficulty Paying for Meds: No Currently Unemployed: No Education: Bachelor's Degree Difficulty w/ Childcare or Family Care: No Living arrangements: with family Additional living arrangements comments: marrried 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 Gender identity (if verbalized by the patient): Female Sexual Orientation (if Verbalized by the Patient): Straight or Heterosexual Spiritual care concerns: No Meds Home Medications and Allergies Home Medications ?Medication ?Instructions ?Recorded ?Confirmed ?Type albuterol sulfate 1.25 mg/3 mL 1.25 mg (3 mL) inhalation Q4H PRN 06/16/24 10/22/24 Rx solution for nebulization Shortness Of Breath Or Wheezing #90 mL montelukast 10 mg tablet See Rx Instructions .Route 06/16/24 10/22/24 Rx .COMPLEX #90 tabs budesonide-formoterol HFA 80 2 puff inhalation Q12H asthma 07/02/24 10/22/24 Rx mcg-4.5 mcg/actuation aerosol #10.2 grams inhaler (Symbicort) ondansetron 4 mg disintegrating See Rx Instructions .Route 09/03/24 10/22/24 Rx tablet .COMPLEX #20 tabs albuterol sulfate 90 mcg/actuation 2 puff inhalation QID PRN 10/22/24 10/22/24 History aerosol inhaler shortness of breath or wheezing ascorbic acid (vitamin C) 1,000 mg 1 g PO DAILY 10/22/24 10/22/24 History tablet (C-1000) cholecalciferol (vitamin D3) 50 2,000 unit PO DAILY 10/22/24 10/22/24 History mcg (2,000 unit) tablet (Vitamin D3) loratadine 10 mg tablet (Claritin) 10 mg PO DAILY 10/22/24 10/22/24 History melatonin 10 mg capsule 10 mg PO HS 10/22/24 10/22/24 History semaglutide (weight loss) 1.7 1.7 mg subcut WEEKLY 10/22/24 10/22/24 History mg/0.75 mL subcutaneous pen injector zinc 15 mg tablet 30 mg PO DAILY 10/22/24 10/22/24 History Allergies Allergy/AdvReac Type Severity Reaction Status Date / Time amoxicillin Allergy Unknown Hives Verified 10/22/24 13:26 cephalexin Allergy Unknown Diarrhea Unverified 10/22/24 13:26 latex Allergy Unknown Rash Verified 10/22/24 13:26 Sulfa (Sulfonamide Allergy Unknown Rash Verified 10/22/24 13:26 Antibiotics) TAPE AdvReac Intermediate Itching Uncoded 10/22/24 13:26 Exam Const: General: cooperative and healthy appearing Resp: Effort & Inspection: normal respiratory effort Auscultation: clear to auscultation bilaterally Cardio: Rate: regular rate Rhythm: regular rhythm GI: Inspection: normal to inspection Auscultation: normal bowel sounds : External Female Exam: normal external appearance Speculum Exam - Vagina: normal appearance of the vagina Speculum Exam - Cervix: normal appearance of the cervix Bimanual exam- vagina & uterus: enlarged ( 10-12 week size) Bimanual Exam- Adnexa, other: normal adnexae Assessment and Plan Assessment and plan (1) Menometrorrhagia: Code(s): N92.1 - Excessive and frequent menstruation with irregular cycle Status: Acute (2) Dysmenorrhea: Code(s): N94.6 - Dysmenorrhea, unspecified Status: Acute (3) Enlarged uterus: Code(s): N85.2 - Hypertrophy of uterus Status: Acute Plan proceed with robotic assisted laparoscopic total hysterectomy with bilateral salpingectomy (if tubal segments persist), no oophorectomy.
[2024-10-30] VITALS (12 sets, daily range): BP systolic 97–144; BP diastolic 63–92; PULSE 69–95; RESP 14–18; TEMP 36.3–37; O2SAT 95–100
--- NOTE | 2024-10-30 06:14 | WPDHPUPDATE1 ---
History and Physical Update Update Date/Time: 10/30/24 06:14 History and Physical has been reviewed, including an updated exam of the patient. There are NO changes in the patient's condition. Risks, benefits, and alternatives have been discussed and questions answered. Patient agrees to proceed with procedure.
[2024-10-30] MEDS: DEXTROSE 5% IVPB (06:50)
[2024-10-30] MEDS: LACTATED RINGERS 1,000 ML 30 ML IV CONT ×2 (06:50→09:31)
[2024-10-30] MEDS: GENTAMICIN SULFATE IVPB (06:50)
[2024-10-30] MEDS: ACETAMINOPHEN 500 MG TABLET 1000 MG PO ×3 (06:50→19:16)
[2024-10-30] MEDS: KETOROLAC 15 MG/ML VIAL (*BKC) IV PUSH ×2 (06:50→10:24)
--- NOTE | 2024-10-30 07:03 | P.PNAN_ITS ---
Anes - Initial Pre Proc Eval Procedure: Operation Date: 10/30/24 08:00 Proposed Procedures p Robotic Assisted Total Laparoscopic Hysterectomy with Bilateral Salpingectomy - Jose Harris MD Date/Time: 10/30/24 07:03 Surgeon: Jose Harris MD Pre Op Diagnosis: menometrorrhagia Patient Data Age: 39 Gender: F Height: 1.61 m Weight: 70.5 kg Allergies Allergy/AdvReac Type Severity Reaction Status Date / Time amoxicillin Allergy Unknown Hives Verified 10/22/24 13:26 cephalexin Allergy Unknown Diarrhea Unverified 10/22/24 13:26 latex Allergy Unknown Rash Verified 10/22/24 13:26 Sulfa (Sulfonamide Allergy Unknown Rash Verified 10/22/24 13:26 Antibiotics) TAPE AdvReac Intermediate Itching Uncoded 10/22/24 13:26 Home Medications ?Medication ?Instructions ?Recorded ?Confirmed ?Type albuterol sulfate 1.25 mg/3 mL 1.25 mg (3 mL) inhalation Q4H PRN 06/16/24 10/22/24 Rx solution for nebulization Shortness Of Breath Or Wheezing #90 mL montelukast 10 mg tablet See Rx Instructions .Route 06/16/24 10/22/24 Rx .COMPLEX #90 tabs budesonide-formoterol HFA 80 2 puff inhalation Q12H asthma 07/02/24 10/22/24 Rx mcg-4.5 mcg/actuation aerosol #10.2 grams inhaler (Symbicort) ondansetron 4 mg disintegrating See Rx Instructions .Route 09/03/24 10/22/24 Rx tablet .COMPLEX #20 tabs albuterol sulfate 90 mcg/actuation 2 puff inhalation QID PRN 10/22/24 10/22/24 History aerosol inhaler shortness of breath or wheezing ascorbic acid (vitamin C) 1,000 mg 1 g PO DAILY 10/22/24 10/22/24 History tablet (C-1000) cholecalciferol (vitamin D3) 50 2,000 unit PO DAILY 10/22/24 10/22/24 History mcg (2,000 unit) tablet (Vitamin D3) loratadine 10 mg tablet (Claritin) 10 mg PO DAILY 10/22/24 10/22/24 History melatonin 10 mg capsule 10 mg PO HS 10/22/24 10/22/24 History semaglutide (weight loss) 1.7 1.7 mg subcut WEEKLY 10/22/24 10/22/24 History mg/0.75 mL subcutaneous pen injector zinc 15 mg tablet 30 mg PO DAILY 10/22/24 10/22/24 History Patient hx anesthesia problems: none Family hx anesthesia problems: none Results Review: All pre-operative results and documents have been reviewed as part of the pre- operative evaluation. [facility] Past Medical History Medical History COVID-19 Exposure to COVID-19 virus Overweight (BMI 25.0-29.9) Seasonal allergies Encounter for weight loss counseling Nicotine addiction Cigarette smoker Asthma Surgical History Surgical History H/O tubal ligation Social History Social History (Updated 10/30/24 @ 07:06 by José Miguel Hedrick MD) Smoking packs per day: 1 Smoking cigarettes per day: 20.0 Years smoked: 20 Smoking pack-years: 20.00 Smoking status: Current every day smoker Tobacco type: cigarettes Second hand tobacco smoke exposure: Yes Alcohol intake: current Drinks per week: 2 Alcohol use details: social Substance use: never Substance use type: does not use Do You Feel Safe in your Home?: Yes Lack of Transportation: No Lack of Food: Never True Current Housing: I Have Housing Concerned About Future Housing: No Difficulty Paying Gas/Electric Bills: No Difficulty Paying for Meds: No Currently Unemployed: No Education: Bachelor's Degree Difficulty w/ Childcare or Family Care: No Living arrangements: with family Additional living arrangements comments: marrried 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 Gender identity (if verbalized by the patient): Female Sexual Orientation (if Verbalized by the Patient): Straight or Heterosexual Spiritual care concerns: No Anes - Eval Final PreProcedure Day of Procedure 10/30/24 07:03 Patient weight: overweight Heart: regular rate and rhythm Lungs: clear to auscultation Airway: Mallampati scale class II Neurological: alert and oriented Last oral intake: >/= 8 hours ASA classification: II Emergent: no Anesthetic plan: proceed Anesthesia type and monitoring: general ETT and standard monitoring Results Review: All pre-operative results and documents have been reviewed as part of the pre- operative evaluation. Informed Consent: The patient's anesthetic plan and its attendant risks and benefits were discussed with the patient/family/POA. Questions were solicited and answers pr ovided to the satisfaction of the patient/family/POA.
[2024-10-30] MEDS: CLINDAMYCIN 900 MG/D5W 50 ML 900 MG/50 ML PIGGYBACK 50 MG IVPB (07:59)
[2024-10-30 08:17] LABS: BEDSIDEPREGUCG Negative (Negative)
--- NOTE | 2024-10-30 09:17 | W.PM.PROC2 ---
Procedure Note - Detailed Date of Procedure 10/30/24 Pre-op Diagnosis 1. Menometrorrhagia 2. Dysmenorrhea Post-op Diagnosis Same Procedure Performed Robotic assist laparoscopic total hysterectomy with bilateral salpingectomy Surgeon Jose Harris MD Anesthesia General Findings Mildly enlarged globular uterus, tubes with evidence of prior tubal ligation, ovaries without abnormality Description of Procedure Patient prepped and draped usual manner for this procedure. Cervical instruments were placed for uterine mobility throughout the case. Abdominal trocar sites were marked and trocars were placed under direct visualization. Trocars were then attached to the de Kevin system and instruments were placed under direct visualization. Surgeon moved to the console with findings as noted above. Bilaterally the round ligament cauterized and cut bladder flap developed without difficulty posterior leaf the broad ligament was also incised to skeletonized uterine vessels. Once this was performed the vessels were cauterized and cut. Posterior colpotomy incision was made this was carried circumferentially to separate the cervix from the vagina and uterus delivered into the vagina. There was no bleeding of note. Cuff is then closed using V lock suture from the right angle to midline and then from the left angle to the midline with good approximation noted. Irrigation was undertaken with again no bleeding noted. Hematoma was placed empirically over all the incision sites, gas was allowed to escape, trocars removed and trocar sites were approximated 4-0 Monocryl. Patient was then sent to recovery room in stable condition. Estimated Blood Loss 100 Drains No Packing No Pathology Yes Complications No immediate complications Condition Stable Disposition PACU [facility] Billing Surgery - Charge Forward: Surgery Billing
[2024-10-30] MEDS: ONDANSETRON INJ 4 MG/2 ML VIAL IV PUSH (09:43)
[2024-10-30] MEDS: fentaNYL CITRATE INJ (*CRX) 100 MCG/2 ML VIAL 25 MCG IV PUSH ×6 (09:45→10:07)
[2024-10-30] MEDS: diphenhydrAMINE HCl INJ 50 MG/ML VIAL 25 MG IV PUSH ×2 (10:21→15:10)
[2024-10-30] MEDS: HYDROmorphone HCL INJ (*CRX) 1 MG/ML SYR 0.5 MG IV PUSH ×2 (10:36→10:50)
[2024-10-30] MEDS: oxyCODONE HCL (*CRX) 5 MG TAB IR PO ×3 (11:44→21:44)
[2024-10-30] MEDS: DEXTROSE 5%/0.45% SOD CHL 1,000 ML 125 ML IV CONT (11:45)
--- NOTE | 2024-10-30 12:13 | ADMGEN ---
This patient, Faby Valentino, was admitted to OB 2nd Floor Room 289-00. Patient/family oriented to hospital policies and general routines including ID bracelet, bed and alarms, visiting hours, pain management, procedures, bathroom and other care routines, personal items, smoking policy, room service/diet, and visiting hours. Information on how to activate the Rapid Response Team has been discussed. Patient/Family are encouraged to report perceived risks to care and to ask questions if they do not understand what they are told or what they should do.
--- NOTE | 2024-10-30 12:53 | PC.NURSE ---
On 10/30/24, the license pending nurse, Jayne Howell, provided care and completed [employer] documentation on this patient. I have reviewed the license pending nurse's documentation and agree with the findings.
[2024-10-30] MEDS: SIMETHICONE 80 MG TAB.CHEW PO ×2 (12:58→17:35)
[2024-10-30] MEDS: DOCUSATE SODIUM 100 MG CAPSULE PO (17:35)
[2024-10-30] MEDS: KETOROLAC 30 MG/ML VIAL (*BKC) IV PUSH (19:16)
[2024-10-30] MEDS: FLUTICASONE/SALMETEROL 45-21 MCG INHALER 1 PUFF 2 PUFF INHALATION (20:00)
[2024-10-30] MEDS: MELATONIN 5 MG TABLET 10 MG PO (21:45)
[2024-10-31 00:08] VITALS: BP 94/60; PULSE 67; RESP 16; TEMP 36.8; O2SAT 95
[2024-10-31] MEDS: ACETAMINOPHEN 500 MG TABLET 1000 MG PO (01:44)
[2024-10-31] MEDS: KETOROLAC 30 MG/ML VIAL (*BKC) IV PUSH (01:46)
[2024-10-31] MEDS: oxyCODONE HCL (*CRX) 5 MG TAB IR PO (03:10)
[2024-10-31 05:22] VITALS: BP 90/58; PULSE 72; RESP 18; TEMP 36.8; O2SAT 98
[2024-10-31 05:51] LABS: Basophils Percent Auto 0.4 % (0.2-1.2); Eosinophils Absolute Auto 0.3 K/mm3 (0-0.3); Eosinophils Percent Auto 2.4 % (0-4.4); Hematocrit 38.4 % (37.0-47.0); Hemoglobin 12.2 g/dL (12.0-15.0); Immature Granulocyte Absolute 0.03 K/mm3 (0.00-0.031); Immature Granulocyte Percent A 0.3 % (0-0.5); Lymphocytes Absolute Auto 2.78 K/mm3 (0.9-3.2); Lymphocytes Percent Auto 24.6 % (18.3-44.2); Mean Corpuscular HGB Conc 31.8 g/dl (32-36); Mean Corpuscular Hemoglobin 30.6 pg (26-34); Mean Corpuscular Volume 96.2 fl (80-100); Mean Platelet Volume 9.7 fl (7.4-10.4); Monocytes Absolute Auto 0.9 K/mm3 (0.1-0.6); Neutrophils Absolute Auto 7.3 K/mm3 (1.3-6.7); Neutrophils Percent Auto 64.3 % (45.5-73.1); Platelet Count Result 329 k/mm3 (150-375); Red Blood Count 3.99 M/mm3 (4.2-5.4); White Blood Count 11.3 K/mm3 (4.5-10.0)
[2024-10-31] MEDS: oxyCODONE HCL (*CRX) 5 MG TAB IR 10 MG PO (08:00)
[2024-10-31 08:40] VITALS: BP 118/69; PULSE 70; RESP 18; TEMP 36.9; O2SAT 98
== END 2024-10-31 09:15 | disposition home or self-care (01) ==
LOC: ANHSURGERY 06:00 → ANHOB2 14:29
PROVIDERS: PCP Nurse Practitioner Family; Visit Provider Obstetrics & Gynecology
PROC: (CPT 58571; principal; 2024-10-30 08:00)
DX: D25.9 Leiomyoma of uterus, unspecified (principal); G89.18 Other acute postprocedural pain; J45.909 Unspecified asthma, uncomplicated; F17.210 Nicotine dependence, cigarettes, uncomplicated; Z79.51 Long term (current) use of inhaled steroids; Z79.85 Long-term (current) use of injectable non-insulin antidiabetic drugs; Z98.890 Other specified postprocedural states; Z98.51 Tubal ligation status
CPT/HCPCS: 58571; S2900; 36415; 85025; 88307; 99199; A9270; J1171; J1200; J1580; J1885; J2250; J2405; J2704; J3010; J7120